=== PATIENT | male | born 1985 | race Caucasian/White ===

== ENCOUNTER 2016-10-08 15:26 | Inpatient (IN) ==
[2016-10-08] MEDS ORDERED: *HR* Belladonna Alkaloids/Opium 30 MG RECTAL SUPPOSITORY RC ONE (15:28)
--- NOTE | 2016-10-08 15:38 | Emergency Department Note ---
Disposition Clinical Impression: Bladder spasms UTI (urinary tract infection) Qualifiers: Urinary tract infection type: acute cystitis Hematuria presence: with hematuria Qualified Code(s): N30.01 - Acute cystitis with hematuria Disposition: Admitted As Inpatient Condition: Good Referrals: NO,PCP [Primary Care Provider] - Forms: ED Satisfaction Letter Time of Disposition: 18:06 Male Urogenital HPI - General Chief complaint: ED Urogenital-Male Stated complaint: bladder spasms Time Seen by Provider: 10/08/16 15:28 Source: patient, EMS Mode of arrival: EMS Limitations: no limitations Nursing Notes Reviewed: Yes Vital Signs Reviewed: Yes - History of Present Illness HPI Narrative: Patient presents to the emergency department from home via EMS. He complains of bladder spasms. 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 He states his bladder spasms causes left leg to shake and for him to have loose bowel movements. He denies fevers or systemic symptoms including nausea, vomiting, chills. Pt Subjective Complaint: other Onset (ago): day(s) Duration: intermittent Improves with: none Worsens with: none indwelling catheter Reports: other (Diarrhea, leg shaking) - Related Data Home Medications Medication Instructions Recorded Confirmed Baclofen [Lioresal] 10 mg PO TID 05/18/15 10/20/15 Gabapentin [Neurontin] 600 mg PO TID 05/18/15 10/20/15 Magnesium Oxide [Mag-Ox] 400 mg PO DAILY 05/18/15 10/20/15 OxyCODONE Immed Rel [Roxicodone 5 10 mg PO Q6HR PRN 05/18/15 10/20/15 MG] Sertraline [Zoloft] 100 mg PO DAILY 05/18/15 10/20/15 Warfarin [Coumadin] 5 mg PO QPM 05/18/15 10/20/15 Melatonin/Pyridoxine HCl (B6) 5 mg PO DAILY 10/20/15 10/20/15 [Melatonin 5 mg Tablet] Multivitamin [Multi-Day Vitamins] 1 tab PO DAILY 10/20/15 10/20/15 Previous Rx's Medication Instructions Recorded Cefdinir [Omnicef] 300 mg PO DAILY #10 capsule 10/23/15 OxyCODONE Immed Rel [Roxicodone 5 10 mg PO Q6HR PRN #30 tablet 10/23/15 MG] Allergies Allergy/AdvReac Type Severity Reaction Status Date / Time tramadol Allergy See Verified 10/08/16 15:34 Comments acetaminophen [From Vicodin] AdvReac Nausea Verified 10/08/16 15:34 ceftriaxone [From Rocephin] AdvReac See Verified 10/08/16 15:34 Comments hydrocodone [From Vicodin] AdvReac Nausea Verified 10/08/16 15:34 All systems ED: reviewed and negative except as stated. Constitutional: Reports: as per HPI Eyes: Reports: as per HPI ENT ED: Reports: as per HPI Cardiovascular: Reports: as per HPI Respiratory: Reports: as per HPI Gastrointestinal: Reports: diarrhea Genitourinary: Reports: other (Bladder spasms) Musculoskeletal: Reports: other (Left leg shaking) Integumentary: Reports: as per HPI Neurological: Reports: as per HPI Psychiatric: Reports: as per HPI Endocrine: Reports: as per HPI Hematological/Lymphatic: Reports: as per HPI Allergic/Immunologic: Reports: as per HPI Past Medical History - Past Medical History Source: patient Medical history: Reports: seizures, other Surgical history: Reports: hip replacement, tracheostomy Psychiatric history: Reports: anxiety - Social History Smoking Status: Current every day smoker Smokeless Tobacco Status: No Alcohol use: Reports: occasionally Drug use: Reports: marijuana Physical Exam Appears older than stated age on exam - General Limitations: no limitations General appearance: alert, in no apparent distress - Head Head exam: atraumatic - Eye Eye exam: Present: normal appearance - Neck Neck exam: Present: other (Remote tracheostomy scar) - Chest Chest inspection: Present: normal inspection, symmetric chest wall rise - Respiratory Respiratory exam: Present: normal lung sounds bilaterally. Absent: respiratory distress - Cardiovascular Cardiovascular exam: Present: regular rate, normal rhythm, normal heart sounds - Abdominal Exam Abdominal Exam: Present: soft, Non-Tender, normal bowel sounds - Male exam: Present: other (Suprapubic catheter) - Expanded Lower Extremity Exam Lower leg exam: Present: other (Left foot and heel with circumferential bandage in place) - Neurological Exam Neurological exam: Present: alert, oriented X3, CN II-XII intact - Psychiatric Psychiatric exam: Present: normal affect, normal mood - Skin Skin exam: Present: warm, dry, intact Course Course Narrative: Patient presents to the emergency department complaining of bladder spasms due to an indwelling suprapubic catheter. He denies systemic symptoms. No Sirs criteria. B and O suppository offered. I will replace the suprapubic catheter and send a urinalysis off urine obtained from the new catheter. I will check basic labs. He will be observed - Reevaluation(s) Reevaluation #1: 20-[place] suprapubic catheter removed and replaced by me. Reevaluation #2: Bladder spasms persist. Additional analgesics were ordered Reevaluation #3: Patient's pain is improved. I am concerned about his home situation and that he takes care of himself and he is nonambulatory and debilitated. He uses a wheelchair. His bladder spasms have caused diarrhea. Empiric antibiotics to be initiated. I will request admission to the medicine service Additional Reevaluation(s): Patient question regarding his ceftriaxone allergy. He states he does not, to his knowledge, have such an allergy. I discussed treatment options with the in- house pharmacist Carlos. I have reviewed the patient's most recent positive urine cultures which include corynebacterium and pseudomonas. We have mutually agreed to try Zosyn and closely observe the patient Vital Signs Temperature 99.5 F 10/08/16 15:28 Pulse Rate 98 10/08/16 15:28 Respiratory Rate 14 10/08/16 15:28 Blood Pressure 119/79 10/08/16 15:28 O2 Sat by Pulse Oximetry 98 10/08/16 15:28 Temperature 99.5 F 10/08/16 15:28 Pulse Rate 98 10/08/16 15:28 Respiratory Rate 16 10/08/16 17:34 Blood Pressure 135/82 10/08/16 17:34 O2 Sat by Pulse Oximetry 98 10/08/16 17:34 Oxygen Delivery Oxygen Delivery Room Air Urogenital-Male - Medical Records Medical records reviewed: Yes I reviewed the patient's medical records. Previous urinalysis and sensitivities - Lab Data Lab results reviewed: Yes I reviewed the patient's lab results. Result diagrams: 10/08/16 16:05 10/08/16 16:05 Lab Results 10/08/16 10/08/16 10/08/16 Range/Units 16:05 16:05 16:05 WBC 12.5 H (4.3-11.1) K/mcL RBC 5.84 H (4.19-5.50) M/mcL Hgb 17.1 H (12.9-16.9) g/dL Hct 49.0 (37.5-50.1) % MCV 83.9 (83.0-100.0) fL MCH 29.3 (28.0-33.3) pg MCHC 34.9 (31.6-35.5) g/dL RDW 14.5 (11.5-14.5) % Plt Count 298 (140-400) K/mcL MPV 10.3 (9.4-12.4) fL Immature Gran % 1.1 (0-4) % Seg Neutrophils % 79.0 % Lymphocytes % 4.9 % Monocytes % 14.5 % Eosinophils % 0.2 % Basophils % 0.3 % Neutrophils # 9.9 H (1.6-8.9) K/mcL Lymphocytes # 0.6 (0.6-4.6) K/mcL Monocytes # 1.8 H (0.0-1.3) K/mcL Eosinophils # 0.0 (0.0-0.6) K/mcL Basophils # 0.0 (0.0-0.2) K/mcL PT 46.4 H* (9.4-12.1) Seconds INR 4.1 Sodium 132 L (136-145) mEq/L Potassium 3.9 (3.5-4.5) mEq/L Chloride 91 L (98-109) mEq/L Carbon Dioxide 26 (19-29) mEq/L BUN 9 (8-26) mg/dL Creatinine 0.71 L (0.72-1.25) mg/dL Est GFR ( Amer) > 60 (> 60) Est GFR (Non-Af Amer) > 60 (> 60) BUN/Creatinine Ratio 13 (6-26) Glucose 96 (70-99) mg/dL Calculated Osmolality 273 L (280-300) Calcium 8.7 (8.6-10.8) mg/dL Total Bilirubin 0.8 (0.2-1.2) mg/dL AST 18 (5-34) Units/L ALT 28 (0-55) Units/L Alkaline Phosphatase 72 (38-126) Units/L Serum Total Protein 7.1 (6.0-8.3) g/dL Albumin 2.9 L (3.5-5.0) g/dL Globulin 4.2 H (2.4-3.5) g/dL Albumin/Globulin Ratio 0.7 L (1.1-2.2) Urine Color (Yellow) Urine Clarity (Clear) Urine pH (5.0-8.0) pH Units Ur Specific [place] (1.010-1.025) Urine Protein (Neg-Trace) mg/dL Urine Glucose (UA) (Normal) mg/dL Urine Ketones (Negative) mg/dL Urine Blood (Negative) Urine Nitrite (Negative) Urine Bilirubin (Negative) Urine Urobilinogen (Normal) mg/dL Ur Leukocyte Esterase (Negative) 10/08/16 Range/Units 17:52 WBC (4.3-11.1) K/mcL RBC (4.19-5.50) M/mcL Hgb (12.9-16.9) g/dL Hct (37.5-50.1) % MCV (83.0-100.0) fL MCH (28.0-33.3) pg MCHC (31.6-35.5) g/dL RDW (11.5-14.5) % Plt Count (140-400) K/mcL MPV (9.4-12.4) fL Immature Gran % (0-4) % Seg Neutrophils % % Lymphocytes % % Monocytes % % Eosinophils % % Basophils % % Neutrophils # (1.6-8.9) K/mcL Lymphocytes # (0.6-4.6) K/mcL Monocytes # (0.0-1.3) K/mcL Eosinophils # (0.0-0.6) K/mcL Basophils # (0.0-0.2) K/mcL PT (9.4-12.1) Seconds INR Sodium (136-145) mEq/L Potassium (3.5-4.5) mEq/L Chloride (98-109) mEq/L Carbon Dioxide (19-29) mEq/L BUN (8-26) mg/dL Creatinine (0.72-1.25) mg/dL Est GFR ( Amer) (> 60) Est GFR (Non-Af Amer) (> 60) BUN/Creatinine Ratio (6-26) Glucose (70-99) mg/dL Calculated Osmolality (280-300) Calcium (8.6-10.8) mg/dL Total Bilirubin (0.2-1.2) mg/dL AST (5-34) Units/L ALT (0-55) Units/L Alkaline Phosphatase (38-126) Units/L Serum Total Protein (6.0-8.3) g/dL Albumin (3.5-5.0) g/dL Globulin (2.4-3.5) g/dL Albumin/Globulin Ratio (1.1-2.2) Urine Color Yellow (Yellow) Urine Clarity Cloudy A (Clear) Urine pH 7.0 (5.0-8.0) pH Units Ur Specific [place] 1.015 (1.010-1.025) Urine Protein 100 H (Neg-Trace) mg/dL Urine Glucose (UA) Normal (Normal) mg/dL Urine Ketones 40 H (Negative) mg/dL Urine Blood Large H (Negative) Urine Nitrite Positive A (Negative) Urine Bilirubin Negative (Negative) Urine Urobilinogen Normal (Normal) mg/dL Ur Leukocyte Esterase Large H (Negative)
[2016-10-08 16:18] LABS: Basophils % 0.3 %; Eosinophils % 0.2 %; Hemoglobin 17.1 g/dL (12.9-16.9); Immature Granulocytes % 1.1 % (0-4); Lymphocytes # 0.6 K/mcL (0.6-4.6); Lymphocytes % 4.9 %; Mean Corpuscular HGB Conc 34.9 g/dL (31.6-35.5); Mean Corpuscular Hemoglobin 29.3 pg (28.0-33.3); Mean Corpuscular Volume 83.9 fL (83.0-100.0); Mean Platelet Volume 10.3 fL (9.4-12.4); Monocytes # 1.8 K/mcL (0.0-1.3); Monocytes % 14.5 %; Neutrophils # 9.9 K/mcL (1.6-8.9); Platelet Count 298 K/mcL (140-400); Red Blood Count 5.84 M/mcL (4.19-5.50); Red Cell Distribution Width 14.5 % (11.5-14.5)
[2016-10-08 16:22] LABS: INR 4.1
[2016-10-08 16:28] LABS: Alanine Aminotransferase 28 Units/L (0-55); Albumin 2.9 g/dL (3.5-5.0); Albumin/Globulin Ratio 0.7 (1.1-2.2); Alkaline Phosphatase 72 Units/L (38-126); Aspartate Amino Transferase 18 Units/L (5-34); BUN/Creatinine Ratio 13 (6-26); Bilirubin,Total 0.8 mg/dL (0.2-1.2); Blood Urea Nitrogen 9 mg/dL (8-26); Calcium 8.7 mg/dL (8.6-10.8); Carbon Dioxide 26 mEq/L (19-29); Chloride 91 mEq/L (98-109); Globulin 4.2 g/dL (2.4-3.5); Glucose 96 mg/dL (70-99); Osmolality,Calculated 273 (280-300); Potassium 3.9 mEq/L (3.5-4.5); Prothrombin Time 46.4 Seconds (9.4-12.1); Sodium 132 mEq/L (136-145); Total Protein 7.1 g/dL (6.0-8.3); eGFR For African Americans > 60 (> 60); eGFR For Non-African Americans > 60 (> 60)
[2016-10-08] MEDS ORDERED: *HR* HYDROmorphone (PF) 1 MG/ML SYRINGE IVP ONE (17:32)
[2016-10-08 17:59] LABS: Bilirubin,Urine Negative (Negative); Blood,Urine Large (Negative); Clarity,Urine Cloudy (Clear); Color,Urine Yellow (Yellow); Glucose,Urine (UA) Normal (Normal); Ketones,Urine 40 mg/dL (Negative); Leukocyte Esterase,Urine Large (Negative); Nitrite,Urine Positive (Negative); Protein,Urine 100 mg/dL (Neg-Trace); Specific Gravity,Urine 1.015 (1.010-1.025); Urobilinogen,Urine Normal (Normal)
[2016-10-08 18:01] LABS: Bacteria,Urine Many per hpf (None-Few); RBC,Urine TNTC per hpf (0-3); Squamous Epithelial Cell,Urine Moderate per lpf (None-Few); WBC,Urine TNTC per hpf (0-3)
[2016-10-08] MEDS ORDERED: Piperacillin/Tazobactam 3.375 GM in D5% in Water (Mini-Bag+) 100 ML IVPB ONE (18:12)
[2016-10-09] MEDS ORDERED: *HR* Belladonna Alkaloids/Opium 30 MG RECTAL SUPPOSITORY RC PRN (00:29)
[2016-10-09] MEDS ORDERED: Naloxone 0.4 MG/ML INJ IVP PRN (00:40)
[2016-10-09 01:52] LABS: Basophils # 0.1 K/mcL (0.0-0.2); Basophils % 0.4 %; Eosinophils % 0.2 %; Hematocrit 47.4 % (37.5-50.1); Hemoglobin 16.6 g/dL (12.9-16.9); Immature Granulocytes % 1.3 % (0-4); Lymphocytes # 0.7 K/mcL (0.6-4.6); Lymphocytes % 5.9 %; Mean Corpuscular Hemoglobin 28.8 pg (28.0-33.3); Mean Corpuscular Volume 82.3 fL (83.0-100.0); Mean Platelet Volume 10.7 fL (9.4-12.4); Monocytes # 1.9 K/mcL (0.0-1.3); Monocytes % 15.5 %; Neutrophils # 9.6 K/mcL (1.6-8.9); Platelet Count 303 K/mcL (140-400); Red Blood Count 5.76 M/mcL (4.19-5.50); Red Cell Distribution Width 14.1 % (11.5-14.5); Segmented Neutrophils % 76.7 %
[2016-10-09 02:07] LABS: BUN/Creatinine Ratio 10 (6-26); Blood Urea Nitrogen 7 mg/dL (8-26); Calcium 8.7 mg/dL (8.6-10.8); Carbon Dioxide 28 mEq/L (19-29); Chloride 92 mEq/L (98-109); Glucose 117 mg/dL (70-99); Osmolality,Calculated 269 (280-300); Potassium 3.5 mEq/L (3.5-4.5); Sodium 130 mEq/L (136-145); eGFR For African Americans > 60 (> 60); eGFR For Non-African Americans > 60 (> 60)
[2016-10-09 02:10] LABS: INR 3.2; Prothrombin Time 36.1 Seconds (9.4-12.1)
[2016-10-09] MEDS ORDERED: Pantoprazole 40 MG VIAL IVP ONE (02:17)
[2016-10-09] MEDS ORDERED: Ibuprofen 400 MG TABLET PO ONE (02:18)
--- NOTE | 2016-10-09 02:59 | Internal Med History&Physical ---
Date of Encounter: 10/08/16 Time of Encounter: 22:15 Assessment and Plan (1) UTI (urinary tract infection) Current visit: Yes Status: Acute Pt has h/o suprapubic catheter and prior multidrug resistant UTIs. Continue with zosyn. Urine cultures pending at this time - titrate antibiotics, based on sensitivities. Qualifiers: Urinary tract infection type: catheter-associated UTI Indwelling urinary catheter type: indwelling urethral catheter Encounter type: initial encounter Qualified Code(s): T83.511A - Infection and inflammatory reaction due to indwelling urethral catheter, initial encounter; N39.0 - Urinary tract infection , site not specified (2) Bladder spasms Current visit: Yes Status: Acute Possibly worsened by the UTI / suprapubic catheter. Pt was not able to retain belladona enemas in the ER. Start pyridium. Continue treatment for UTI (3) DVT prophylaxis Current visit: No Status: Acute On warfarin and INR is supratherapeutic (4) Supratherapeutic INR Current visit: Yes Status: Acute INR is 4.1 at admission. Monitor INR - warfarin dosing per pharmacy. P tis on chronic anticoagulation for lupus (5) Nicotine dependence Current visit: Yes Status: Chronic Counseled for smoking cessation for less than 3 min. He does not want nicotine patch Qualifiers: Nicotine product type: cigarettes Substance use status: uncomplicated Qualified Code(s): F17.210 - Nicotine dependence, cigarettes, uncomplicated Internal Medicine - H&P: HPI Chief complaint: Bladder spasms Admitted From: Home Plans for Post Hospital Care: Home History of present illness: Mr. Urbano is a 31 year old male with past medical history significant for lupus (on chronic anticoagulation with warfarin), seizures and prior h/o trauma to the urethra following pt trying to remove garg with inflated bulb. He has been on suprapubic catheter for about 3 years and had h/o recurrent UTIs. His urine cultures from 05/16/15 showed multidrug resistant pseudomonas aeruginosa. He present s to the ER, with bladder spasms for about 2 weeks. He reports constant spasms, which cause left leg to shake and also have loose bowel movements. He had been on oxybutynin and feels that it is ineffective. He had been trying to move the catheter, without effect. He reports some bleeding, and foul smelling in the catheter. His suprapubic catheter was changed in the ER today. His urinalysis was suspicious for UTI he was given zosyn and admitted to the hospitalist service for further management. Pt denies subjective fever, nausea, vomiting, shortness of breath. Past Med Surg Social Fam HX - Past Medical History Medical history: seizures, other Psychiatric history: anxiety, depression - Past Surgical History Surgical History: hip replacement, tracheostomy - Social History Smoking Status: Current every day smoker Smokeless Tobacco Status: No Alcohol use: occasionally Drug use: marijuana - Family History Mother Living Status: Age at : 56 Cause of : Blood Clot Hx Family Cardiac Disorders: Yes (HTN) Hx Family Respiratory Disorders: Yes (clots) Hx Family Cancer: No Hx Family GI Disorders: No Hx Family Genitourinary Disorders: No Hx Family Endocrine Disorder: No Hx Family Musculoskeletal Disorders: No Hx Family Neuromuscular Disorders: No Hx Family Neurologic Disorders: No Hx Family HEENT Disorders: No Hx Family Autoimmune Disorders: No Hx Family Reproductive Disorders: No Hx Family Psychosocial Disorders: Yes (anxiety, depression,) Hx Family Medical Disorders: No Father Age: 55 Living Status: Still Living Hx Family Cardiac Disorders: No Hx Family Respiratory Disorders: No Hx Family Cancer: Yes (testicular and lung) Hx Family GI Disorders: No Hx Family Genitourinary Disorders: No Hx Family Endocrine Disorder: No Hx Family Musculoskeletal Disorders: No Hx Family Neuromuscular Disorders: No Hx Family Neurologic Disorders: No Hx Family HEENT Disorders: No Hx Family Autoimmune Disorders: No Hx Family Reproductive Disorders: No Hx Family Psychosocial Disorders: No Hx Family Medical Disorders: No Internal Medicine - H&P: Meds Sertraline [Zoloft] 100 mg PO DAILY 05/18/15 [History] Warfarin [Coumadin] 5 mg PO Q48H 05/18/15 [History] Oxybutynin Chloride [Ditropan Xl] 15 mg PO DAILY 10/08/16 [History] Warfarin [Coumadin] 4 mg PO Q48H 10/08/16 [History] Allergies tramadol Allergy (Verified 10/08/16 15:34) See Comments seizures acetaminophen [From Vicodin] Adverse Reaction (Verified 10/08/16 15:34) Nausea ceftriaxone [From Rocephin] Adverse Reaction (Verified 10/08/16 15:34) See Comments "feels like battery acid all over my skin" hydrocodone [From Vicodin] Adverse Reaction (Verified 10/08/16 15:34) Nausea All Systems PM: A 10-system review of systems was performed and is negative for pertinent findings except as documented above in the HPI. Review of systems: 10 point review of systems done and is negative, except for those mentioned in the HPI. - Constitutional Vitals: Temp Pulse Resp BP Pulse Ox 100.2 F H 120 20 107/64 95 10/09/16 00:37 10/09/16 00:37 10/09/16 00:37 10/09/16 00:37 10/09/16 00:37 Exam: General: In mild distress at the time of my evaluation HEENT: No conjunctival palor or scleral incterus Neck: No obvious swellings Lungs: Clear to auscultation Cardiac: Regular rate and rhythm. No significant murmurs Abdomen: Mild suprapubic tenderness present. Bowel sounds present Genito-urinary: Suprapubic catheter in place Neurological: Alert and oriented x 3. Psychiatric: Not aggressive or agitated. No delusions or hallucinations Muskuloskeletal: Flexion deformity at the hips and the knees bilaterally. No leg edema noted. Skin: No generalized rash. Internal Med - H&P Results - Labs CBC & Chem 7: 10/09/16 01:23 10/09/16 01:23 Labs: Short CBC 10/09/16 Range/Units 01:23 WBC 12.5 H (4.3-11.1) K/mcL Hgb 16.6 (12.9-16.9) g/dL Hct 47.4 (37.5-50.1) % Plt Count 303 (140-400) K/mcL Neutrophils # 9.6 H (1.6-8.9) K/mcL BMP 10/09/16 01:23 Sodium 130 L Potassium 3.5 Chloride 92 L Carbon Dioxide 28 BUN 7 L Creatinine 0.72 Glucose 117 H Calcium 8.7
[2016-10-09] MEDS: *HR* OxyCODONE Immed Rel 5 MG TABLET PO PRN ×2 (04:58→11:28)
[2016-10-09] MEDS: Piperacillin/Tazobactam 3.375 GM in D5% in Water (Mini-Bag+) 100 ML IVPB SCH ×2 (08:50→17:08)
[2016-10-09] MEDS: *HR* Morphine 2 MG/ML SYRINGE IV PRN ×3 (13:22→22:31)
--- NOTE | 2016-10-09 14:55 | Event Note ---
Date of Encounter: 10/09/16 Time of Encounter: 14:44 31 y/o M with PMH of SLE, seizure disorder, ETOH abuse, neurogenic bladdder with suprapubic catheter, PMH of distal femur fracture.Patient is admitted for complicated UTI, status post change of suprapubic catheter yesterday at ED. Was seen at the bedside today, reports that the bladder spasms and burning sensation has improved after starting the antibiotics, remains afebrile, no nausea or vomiting or abdominal pain. Noted that the urine culture was not sent from the ED at the time of admission. He has received antibiotics since yesterday. stable leucocytosis with improvement of his symptoms. will send the urine cx today. Has had Corynebacterium and Pseudomonas in urine culture in the past. Has persistent left leg pain which is chronic. Patient reports he is a nonambulator and has not straighten his leg for some time now. On exam he is contracted.was seen by ortho last 10/31 and as per the note, there is no recommendation for surgical management. This would require an extensive procedure with a distal femoral replacement. This will not change his overall condition which he has lived with for sometime now. HE follows with ortho outpatient. will continue IV Zosyn for now. he recently was dc from [facility] and now is coming from home he prefers to go back home with and does not want VT or ECF.
[2016-10-09] MEDS ORDERED: *HR* Warfarin 4 MG TABLET PO SCH (18:00)
[2016-10-09] MEDS ORDERED: Warfarin perPT PO PRN (18:00)
[2016-10-10] MEDS: Piperacillin/Tazobactam 3.375 GM in D5% in Water (Mini-Bag+) 100 ML IVPB SCH ×3 (00:30→15:00)
[2016-10-10] MEDS: *HR* Morphine 2 MG/ML SYRINGE IV PRN (03:44)
[2016-10-10 06:09] LABS: INR 3.7; Prothrombin Time 41.6 Seconds (9.4-12.1)
[2016-10-10] MEDS ORDERED: Acetaminophen 325 MG TABLET PO PRN (09:02)
[2016-10-10] MEDS: *HR* OxyCODONE Immed Rel 5 MG TABLET PO PRN ×2 (09:59→18:45)
[2016-10-10 10:14] LABS: Basophils # 0.1 K/mcL (0.0-0.2); Basophils % 0.5 %; Eosinophils % 0.3 %; Hematocrit 43.6 % (37.5-50.1); Hemoglobin 15.4 g/dL (12.9-16.9); Immature Granulocytes % 1.1 % (0-4); Lymphocytes # 0.6 K/mcL (0.6-4.6); Lymphocytes % 5.2 %; Mean Corpuscular HGB Conc 35.3 g/dL (31.6-35.5); Mean Corpuscular Hemoglobin 29.1 pg (28.0-33.3); Mean Corpuscular Volume 82.4 fL (83.0-100.0); Mean Platelet Volume 10.3 fL (9.4-12.4); Monocytes # 1.4 K/mcL (0.0-1.3); Neutrophils # 8.8 K/mcL (1.6-8.9); Platelet Count 275 K/mcL (140-400); Red Blood Count 5.29 M/mcL (4.19-5.50); Red Cell Distribution Width 14.2 % (11.5-14.5); Segmented Neutrophils % 79.9 %
--- NOTE | 2016-10-10 16:11 | Internal Med Progress Note ---
Date of Encounter: 10/10/16 Time of Encounter: 12:45 - Assessment and plan (1) Bladder spasms Current Visit: Yes Status: Acute Assessment and plan: Improved clinically, continue same meds (2) Supratherapeutic INR Current Visit: Yes Status: Acute Assessment and plan: INR today 3.7 Continue to hold Coumadin (3) UTI (urinary tract infection) Current Visit: Yes Status: Acute Assessment and plan: Continue Zosyn, follow cultures Qualifiers: Urinary tract infection type: catheter-associated UTI Indwelling urinary catheter type: indwelling urethral catheter Encounter type: initial encounter Qualified Code(s): T83.511A - Infection and inflammatory reaction due to indwelling urethral catheter, initial encounter; N39.0 - Urinary tract infection , site not specified (4) Systemic lupus erythematosus Current Visit: Yes Status: Chronic Qualifiers: Systemic lupus erythematosus type: unspecified Systemic lupus erythematosus organ involvement: unspecified Qualified Code(s): M32.9 - Systemic lupus erythematosus, unspecified (5) Seizure disorder Current Visit: Yes Status: Chronic Assessment and plan: Seizure precautions - Subjective Interval history: 31 y/o M with PMH of SLE, seizure disorder, ETOH abuse, neurogenic bladdder with suprapubic catheter, PMH of distal femur fracture. Patient is admitted for complicated UTI, status post change of suprapubic catheter at ED on presentation He is seen toay at bedside, reports that the bladder spasms and burning sensation has improved after starting the antibiotics, remains afebrile, no nausea or vomiting or abdominal pain. He had been started on empiric Zosyn based on his previous microbiology of Corynebacterium and Pseudomonas in urine culture in the past. Has persistent left leg pain which is chronic. He is otherwise stable Urine culture was just sent yesterday, we will await prelim microbiology Leukocytosis has improved - Constitutional Vitals: Temp Pulse Resp BP Pulse Ox 97.6 F 72 16 96/60 96 10/10/16 11:49 10/10/16 11:49 10/10/16 11:49 10/10/16 11:49 10/10/16 11:49 General appearance: Present: A&O X 3, pleasant, no acute distress, underweight - Head Head exam: Present: atraumatic, normocephalic - Eye Eye exam: Present: PERRL, conjuntiva pink, sclera anicteric Pupils: Present: PERRL - Neck Neck exam general surgery: Present: supple, trachea midline. Absent: lymphadenopathy - Respiratory Respiratory exam: Present: CTAB. Absent: accessory muscle use, rales, rhonchi, wheezes - Cardiovascular Cardiovascular exam: Present: RRR, +S1, +S2. Absent: diastolic murmur, gallop, rubs, systolic murmur - GI/Abdominal Additional comments: Suprapubic garg, site clean, no dressing over it No CVA tenderness - Extremities Exam Extremities exam: Absent: pedal edema Additional comments: Contracture of lower extremity - Neurological Exam Neurological exam: Present: CN II-XII intact, oriented X3. Absent: pronater drift, facial droop, speech deficit - Skin Skin exam: Present: dry Internal Medicine: Result - Labs CBC & Chem 7: 10/10/16 09:37 10/09/16 01:23 Labs: Short CBC 10/10/16 Range/Units 09:37 WBC 11.1 (4.3-11.1) K/mcL Hgb 15.4 (12.9-16.9) g/dL Hct 43.6 (37.5-50.1) % Plt Count 275 (140-400) K/mcL Neutrophils # 8.8 (1.6-8.9) K/mcL - ABG Interpretation ABG results: PT/INR, D-dimer PT 41.6 Seconds (9.4-12.1) H 10/10/16 05:49 Consult Discharge Plan - Plan Referrals: NO,PCP [Primary Care Provider] -
[2016-10-10] MEDS ORDERED: *HR* Warfarin 5 MG TABLET PO SCH (18:00)
[2016-10-11] MEDS ORDERED: *HR* Morphine 2 MG/ML SYRINGE IVP PRN (00:45)
[2016-10-11] MEDS: Piperacillin/Tazobactam 3.375 GM in D5% in Water (Mini-Bag+) 100 ML IVPB SCH ×2 (01:00→08:45)
[2016-10-11 06:19] LABS: Basophils % 0.5 %; Eosinophils # 0.1 K/mcL (0.0-0.6); Eosinophils % 0.7 %; Hematocrit 45.5 % (37.5-50.1); Immature Granulocytes % 0.4 % (0-4); Lymphocytes % 13.8 %; Mean Corpuscular HGB Conc 35.2 g/dL (31.6-35.5); Mean Corpuscular Hemoglobin 29.5 pg (28.0-33.3); Mean Corpuscular Volume 83.9 fL (83.0-100.0); Mean Platelet Volume 9.7 fL (9.4-12.4); Monocytes % 13.5 %; Neutrophils # 5.3 K/mcL (1.6-8.9); Platelet Count 323 K/mcL (140-400); Red Blood Count 5.42 M/mcL (4.19-5.50); Red Cell Distribution Width 14.3 % (11.5-14.5); Segmented Neutrophils % 71.1 %
[2016-10-11 06:21] LABS: INR 2.2
[2016-10-11 06:24] LABS: Activated Partial Thrombo Time 38.2 Seconds (26.0-36.0)
[2016-10-11 06:30] LABS: BUN/Creatinine Ratio 6 (6-26); Calcium 8.7 mg/dL (8.6-10.8); Carbon Dioxide 32 mEq/L (19-29); Chloride 94 mEq/L (98-109); Glucose 119 mg/dL (70-99); Osmolality,Calculated 280 (280-300); Potassium 3.4 mEq/L (3.5-4.5); Sodium 136 mEq/L (136-145); eGFR For African Americans > 60 (> 60); eGFR For Non-African Americans > 60 (> 60)
[2016-10-11 06:33] LABS: Blood Urea Nitrogen 4 mg/dL (8-26)
[2016-10-11 11:46] VITALS: BP 92/53
--- NOTE | 2016-10-11 12:27 | Physician Discharge Referral ---
Home Health/Hosp Referral Info Transfer to: Home Health Attending Provider: Kimberlee Provider in Charge Post Discharge: PCP - Diagnosis (1) Bladder spasms Priority: Primary Status: Resolved (2) Supratherapeutic INR Priority: Primary Status: Resolved (3) UTI (urinary tract infection) Priority: Primary Status: Acute (4) Systemic lupus erythematosus Priority: Secondary Status: Chronic (5) Seizure disorder Priority: Secondary Status: Chronic - Respiratory Orders Smoking Cessation: Smoking cessation has been advised. For more information, call the [place] Tobacco Quit Line at 8-684-OEFG-NOW. - Diet/Nutrition Diet/Nutrition Orders: Regular - Activity Activity Orders: Up ad dahlia - Services Needed Following services are medically necessary services: Nursing, Occupational Therapy - Transfer Medications Prescriptions: Belladonna Alkaloids/Opium [B + O] 30 mg RC Q6HR PRN #6 supp.rect PRN Reason: Spasms Amoxicillin/Clavulanate [Augmentin] 875 mg PO BIDWM #10 tablet Phenazopyridine [Pyridium] 200 mg PO TID PRN #10 tablet PRN Reason: See Comments Home Medications: Sertraline [Zoloft] 100 mg PO DAILY 05/18/15 [History] Warfarin [Coumadin] 5 mg PO Q48H 05/18/15 [History] Oxybutynin Chloride [Ditropan Xl] 15 mg PO DAILY 10/08/16 [History] Warfarin [Coumadin] 4 mg PO Q48H 10/08/16 [History] Amoxicillin/Clavulanate [Augmentin] 875 mg PO BIDWM #10 tablet 10/11/16 [Rx] Belladonna Alkaloids/Opium [B + O] 30 mg RC Q6HR PRN #6 supp.rect 10/11/16 [Rx] Phenazopyridine [Pyridium] 200 mg PO TID PRN #10 tablet 10/11/16 [Rx] Allergies/Adverse Reactions: Allergies tramadol Allergy (Verified 10/08/16 15:34) See Comments seizures acetaminophen [From Vicodin] Adverse Reaction (Verified 10/08/16 15:34) Nausea ceftriaxone [From Rocephin] Adverse Reaction (Verified 10/08/16 15:34) See Comments "feels like battery acid all over my skin" hydrocodone [From Vicodin] Adverse Reaction (Verified 10/08/16 15:34) Nausea Certification: Further, I certify that my clinical findings support that this patient is homebound (i.e. absences from home require considerable and taxing effort and are for medical reasons or holiness services or infrequently or short duration when for other reasons) because: Homebound Reason: Patient requires assistance of a person or device to safely leave home, Leaving home requires considerable and taxing effort due to condition Attestation: My signature below is to certify that this patient is under my care and that I, or nurse practitioner, or a physician's dam tender assistant working with me, has a face-to -face encounter with this patient.
--- NOTE | 2016-10-11 12:29 | Discharge Summary ---
Date of Encounter: 10/11/16 Time of Encounter: 10:20 - Discharge Diagnosis (1) Bladder spasms Priority: Secondary Status: Resolved (2) Supratherapeutic INR Priority: Secondary Status: Resolved (3) UTI (urinary tract infection) Priority: Primary Status: Acute Qualifiers: Urinary tract infection type: catheter-associated UTI Indwelling urinary catheter type: indwelling urethral catheter Encounter type: initial encounter Qualified Code(s): T83.511A - Infection and inflammatory reaction due to indwelling urethral catheter, initial encounter; N39.0 - Urinary tract infection , site not specified (4) Systemic lupus erythematosus Priority: Secondary Status: Chronic Qualifiers: Systemic lupus erythematosus type: unspecified Systemic lupus erythematosus organ involvement: unspecified Qualified Code(s): M32.9 - Systemic lupus erythematosus, unspecified (5) Seizure disorder Priority: Secondary Status: Chronic - Discharge Medications Prescriptions: Belladonna Alkaloids/Opium [B + O] 30 mg RC Q6HR PRN #6 supp.rect PRN Reason: Spasms Amoxicillin/Clavulanate [Augmentin] 875 mg PO BIDWM #10 tablet Phenazopyridine [Pyridium] 200 mg PO TID PRN #10 tablet PRN Reason: See Comments Home Medications: Sertraline [Zoloft] 100 mg PO DAILY 05/18/15 [History] Warfarin [Coumadin] 5 mg PO Q48H 05/18/15 [History] Oxybutynin Chloride [Ditropan Xl] 15 mg PO DAILY 10/08/16 [History] Warfarin [Coumadin] 4 mg PO Q48H 10/08/16 [History] Amoxicillin/Clavulanate [Augmentin] 875 mg PO BIDWM #10 tablet 10/11/16 [Rx] Belladonna Alkaloids/Opium [B + O] 30 mg RC Q6HR PRN #6 supp.rect 10/11/16 [Rx] Phenazopyridine [Pyridium] 200 mg PO TID PRN #10 tablet 10/11/16 [Rx] Allergies/Adverse Reactions: Allergies tramadol Allergy (Verified 10/08/16 15:34) See Comments seizures acetaminophen [From Vicodin] Adverse Reaction (Verified 10/08/16 15:34) Nausea ceftriaxone [From Rocephin] Adverse Reaction (Verified 10/08/16 15:34) See Comments "feels like battery acid all over my skin" hydrocodone [From Vicodin] Adverse Reaction (Verified 10/08/16 15:34) Nausea Date of admission: 10/09/16 00:52 Primary care physician: PCP NO Consults: 10/09/16 07:07 Consult to Deployment Specialist [CONS] Routine Reason for SW Consult: Pt is from home alone, states he can't take care of himself 10/09/16 08:46 Consult to Occupational Therapy [CONS] Routine Comment: Evaluate, develop and implement POC Consult to Physical Therapy [CONS] Routine Comment: Evaluate, develop and implement POC Discharging clinician: Babatunde Mohan Anticipated date of discharge: 10/11/16 - Patient Status Disposition: Home Health Service Condition: Good Functional capacity at discharge: wheelchair bound Overall status at discharge: patient is back to baseline - Discharge Instructions Follow Up With: NO,PCP [Primary Care Provider] - - Diet and Activity Diet: advance to your usual diet Interval History: See below Hospital course: Mr. Urbano is a 31 year old male PMH of SLE, Seizure disorder, EtOH abuse, Neurogenic bladder with suprapubic catheter Was admitted for management of complicated UTI He was placed on Zosyn based on previous urine culture with pseudomonas Urine culture during this admission is negative We will discharge on Augmentin to complete 10 days of therapy Other chronic conditions remain stable Home services has been reactivated He received the flu shot - Time Spent with Patient Total time spent providing and/or coordinating discharge services: Less than 30 minutes - Constitutional Vitals: Temp Pulse Resp BP Pulse Ox 98.2 F 54 10 92/53 96 10/11/16 11:43 10/11/16 11:43 10/11/16 11:43 10/11/16 11:43 10/11/16 11:43 General appearance: Present: A&O X 3, pleasant, no acute distress, underweight - Head Head exam: Present: atraumatic, normocephalic - Eye Eye exam: Present: PERRL, conjuntiva pink, sclera anicteric Pupils: Present: PERRL - Neck Neck exam general surgery: Present: supple, trachea midline. Absent: lymphadenopathy - Respiratory Respiratory exam: Present: CTAB. Absent: accessory muscle use, rales, rhonchi, wheezes - GI/Abdominal Additional comments: Suprapubic catheter, draining clear urine - Extremities Exam Additional comments: Contractures - Neurological Exam Neurological exam: Present: CN II-XII intact, oriented X3, no focal deficits. Absent: pronater drift, facial droop, speech deficit - Skin Skin exam: Present: dry
[2016-10-11] MEDS ORDERED: *HR* Warfarin 4 MG TABLET PO ONE (18:00)
== END 2016-10-11 15:40 | disposition home health service (06) | DRG 466 ==
LOC: EMEROO 15:26 → 2ANU 15:26 → SUATTDRO 10-09 00:52
PROVIDERS: ADMIT Internal Medicine; ATTEND Internal Medicine

== ENCOUNTER 2016-11-07 06:30 | Observation (INO) ==
--- NOTE | 2016-11-07 07:22 | Emergency Department Note ---
Disposition Clinical Impression: UTI (urinary tract infection) Qualifiers: Urinary tract infection type: catheter-associated UTI Indwelling urinary catheter type: cystostomy catheter Encounter type: subsequent encounter Qualified Code(s): T83.510D - Infection and inflammatory reaction due to cystostomy catheter, subsequent encounter; N39.0 - Urinary tract infection, site not specified Disposition: Admitted As Inpatient Condition: Fair Referrals: NO,PCP [Primary Care Provider] - Forms: Work/School Release, ED Satisfaction Letter Time of Disposition: 09:40 Abdominal Pain HPI - General Chief Complaint: ED Abdominal Pain Stated Complaint: Abdominal Pain Time Seen by Provider: 11/07/16 06:46 Source: patient Nursing Notes Reviewed: Yes Vital Signs Reviewed: Yes - History of Present Illness HPI Narrative: Patient is a 31-year-old male who presents to [facility] ED with a chief complaint of suprapubic pain. States his pain has been gradually worsening over the last week and a half. He has a suprapubic catheter in place and states he gets frequent urinary tract infections. She believes this is what it is this time. He has had some discharge from his penis. Denies any nausea, vomiting, fever or chills. Patient was most recently admitted back in September and had been on Zosyn and then sent home with Augmentin. His culture at that time was negative. However he has grown out pseudomonas in his most recent urinary culture 10/29/15. Pt Subjective Complaint: abdominal pain Onset (ago): week(s) Consistency: Worsening Location: suprapubic Pain Severity: severe Pain Scale: 8 Quality: cramping, sharp Radiation: suprapubic Migration to: no migration Improves with: nothing Worsens with: nothing Associated symptoms: Reports: chills. Denies: nausea, vomiting, fever Treatments prior to arrival: none - Related Data Home Medications Medication Instructions Recorded Confirmed Sertraline [Zoloft] 100 mg PO DAILY 05/18/15 10/08/16 Warfarin [Coumadin] 5 mg PO Q48H 05/18/15 10/08/16 Oxybutynin Chloride [Ditropan Xl] 15 mg PO DAILY 10/08/16 10/08/16 Warfarin [Coumadin] 4 mg PO Q48H 10/08/16 10/08/16 Allergies Allergy/AdvReac Type Severity Reaction Status Date / Time tramadol Allergy See Verified 11/07/16 09:22 Comments acetaminophen [From Vicodin] AdvReac Nausea Verified 11/07/16 09:22 ceftriaxone [From Rocephin] AdvReac See Verified 11/07/16 09:22 Comments hydrocodone [From Vicodin] AdvReac Nausea Verified 11/07/16 09:22 All systems ED: reviewed and negative except as stated. Abdominal Pain PMH - Past Medical History Medical history: Reports: seizures, other Male Surgical History: Reports: tracheostomy, other Psychiatric history: Reports: anxiety, depression - Social History Smoking status: Current every day smoker Alcohol use: Reports: heavy, recent Drug use: Reports: marijuana Physical Exam - General Limitations: no limitations General appearance: alert, in no apparent distress, cachectic - Head Head exam: atraumatic, normocephalic, normal inspection - Eye Eye exam: Present: normal appearance, PERRL, EOMI - ENT ENT exam: normal exam, normal oropharynx, mucous membranes moist - Neck Neck exam: Present: normal inspection, full ROM, trachea midline - Chest Chest inspection: Present: normal inspection, symmetric chest wall rise - Respiratory Respiratory exam: Present: normal lung sounds bilaterally - Cardiovascular Cardiovascular exam: Present: regular rate, normal rhythm, normal heart sounds - Abdominal Exam Abdominal exam: Present: soft, tenderness, normal bowel sounds. Absent: distention, guarding, rebound, rigidity Abdominal tenderness: Present: suprapubic, moderate - Extremities Exam Extremities exam: Present: normal inspection, full ROM. Absent: tenderness, pedal edema - Back Exam Back exam: Present: normal inspection, full ROM. Absent: tenderness - Neurological Exam Neurological exam: Present: alert, oriented X3 - Psychiatric Psychiatric exam: Present: normal affect, normal mood - Skin Skin exam: Present: warm, dry, intact, normal color Course Course Narrative: Patient seen and examined. Suprapubic abdominal pain patient feels is another recurrent urinary tract infection. Most recent urine culture showed pseudomonas. Patient states he has not been treated for this anytime recently. With the worsening pain and the patient being tachycardic and borderline hypotensive here, we will go ahead and start a line, draw septic workup labs with blood cultures and start him on a dose of IV Zosyn. 1 L fluids ordered at this time. - Reevaluation(s) Reevaluation #1: Since the patient's previous urinary tract infection was untreated and he is not sensitive to any oral antibiotics, we will admit him to hospital list for further management and treatment. I spoke with hospitalist Dr. Davis who has accepted patient for admission. Time: 09:39 Vital Signs Temperature 98.2 F 11/07/16 06:32 Pulse Rate 124 11/07/16 06:32 Respiratory Rate 18 11/07/16 06:32 Blood Pressure 122/87 11/07/16 06:32 O2 Sat by Pulse Oximetry 98 11/07/16 06:32 Temperature 98.2 F 11/07/16 06:32 Pulse Rate 91 11/07/16 08:12 Respiratory Rate 17 11/07/16 08:12 Blood Pressure 114/83 11/07/16 08:12 O2 Sat by Pulse Oximetry 98 11/07/16 08:12 Oxygen Delivery Oxygen Delivery Room Air Abdominal Pain - Medical Records Medical records reviewed: Yes I reviewed the patient's medical records. - Lab Data Lab results reviewed: Yes I reviewed the patient's lab results. Result diagrams: 11/07/16 06:44 11/07/16 06:44 Lab Results 11/07/16 11/07/16 11/07/16 Range/Units 06:42 06:44 06:44 WBC 6.4 (4.3-11.1) K/mcL RBC 5.80 H (4.19-5.50) M/mcL Hgb 17.2 H (12.9-16.9) g/dL Hct 49.4 (37.5-50.1) % MCV 85.2 (83.0-100.0) fL MCH 29.7 (28.0-33.3) pg MCHC 34.8 (31.6-35.5) g/dL RDW 19.0 H (11.5-14.5) % Plt Count 226 (140-400) K/mcL MPV 10.3 (9.4-12.4) fL Immature Gran % 0.9 (0-4) % Seg Neutrophils % 48.9 % Lymphocytes % 36.5 % Monocytes % 8.2 % Eosinophils % 3.8 % Basophils % 1.7 % Neutrophils # 3.1 (1.6-8.9) K/mcL Lymphocytes # 2.3 (0.6-4.6) K/mcL Monocytes # 0.5 (0.0-1.3) K/mcL Eosinophils # 0.2 (0.0-0.6) K/mcL Basophils # 0.1 (0.0-0.2) K/mcL Sodium 140 (136-145) mEq/L Potassium 3.1 L (3.5-4.5) mEq/L Chloride 103 (98-109) mEq/L Carbon Dioxide 25 (19-29) mEq/L BUN 5 L (8-26) mg/dL Creatinine 0.64 L (0.72-1.25) mg/dL Est GFR ( Amer) > 60 (> 60) Est GFR (Non-Af Amer) > 60 (> 60) BUN/Creatinine Ratio 8 (6-26) Glucose 107 H (70-99) mg/dL Calculated Osmolality 288 (280-300) Lactic Acid (0.5-2.2) mmol/L Calcium 8.8 (8.6-10.8) mg/dL Phosphorus 3.4 (2.3-4.7) mg/dL Magnesium 1.6 (1.6-2.6) mg/dL Total Bilirubin 0.8 (0.2-1.2) mg/dL Direct Bilirubin 0.4 (0.0-0.5) mg/dL Indirect Bilirubin 0.4 (0.0-1.2) mg/dL AST 37 H (5-34) Units/L ALT 17 (0-55) Units/L Alkaline Phosphatase 124 (38-126) Units/L Troponin I (0-0.03) ng/mL Serum Total Protein 7.1 (6.0-8.3) g/dL Albumin 3.3 L (3.5-5.0) g/dL Globulin 3.8 H (2.4-3.5) g/dL Albumin/Globulin Ratio 0.9 L (1.1-2.2) Urine Color Yellow (Yellow) Urine Clarity Cloudy A (Clear) Urine pH 7.5 (5.0-8.0) pH Units Ur Specific [place] 1.012 (1.010-1.025) Urine Protein 100 H (Neg-Trace) mg/dL Urine Glucose (UA) Normal (Normal) mg/dL Urine Ketones Negative (Negative) mg/dL Urine Blood Large H (Negative) Urine Nitrite Positive A (Negative) Urine Bilirubin Negative (Negative) Urine Urobilinogen Normal (Normal) mg/dL Ur Leukocyte Esterase Large H (Negative) Urine Microscopic RBC 50-100 H (0-3) per hpf Urine Microscopic WBC TNTC H (0-3) per hpf Ur Squamous Epith Cells Moderate H (None-Few) per lpf Urine Bacteria Many H (None-Few) per hpf Hyaline Casts None Seen (None-Few) per lpf Ur Culture Indicated? YES A (NO) 11/07/16 11/07/16 Range/Units 06:44 07:49 WBC (4.3-11.1) K/mcL RBC (4.19-5.50) M/mcL Hgb (12.9-16.9) g/dL Hct (37.5-50.1) % MCV (83.0-100.0) fL MCH (28.0-33.3) pg MCHC (31.6-35.5) g/dL RDW (11.5-14.5) % Plt Count (140-400) K/mcL MPV (9.4-12.4) fL Immature Gran % (0-4) % Seg Neutrophils % % Lymphocytes % % Monocytes % % Eosinophils % % Basophils % % Neutrophils # (1.6-8.9) K/mcL Lymphocytes # (0.6-4.6) K/mcL Monocytes # (0.0-1.3) K/mcL Eosinophils # (0.0-0.6) K/mcL Basophils # (0.0-0.2) K/mcL Sodium (136-145) mEq/L Potassium (3.5-4.5) mEq/L Chloride (98-109) mEq/L Carbon Dioxide (19-29) mEq/L BUN (8-26) mg/dL Creatinine (0.72-1.25) mg/dL Est GFR ( Amer) (> 60) Est GFR (Non-Af Amer) (> 60) BUN/Creatinine Ratio (6-26) Glucose (70-99) mg/dL Calculated Osmolality (280-300) Lactic Acid 2.6 H (0.5-2.2) mmol/L Calcium (8.6-10.8) mg/dL Phosphorus (2.3-4.7) mg/dL Magnesium (1.6-2.6) mg/dL Total Bilirubin (0.2-1.2) mg/dL Direct Bilirubin (0.0-0.5) mg/dL Indirect Bilirubin (0.0-1.2) mg/dL AST (5-34) Units/L ALT (0-55) Units/L Alkaline Phosphatase (38-126) Units/L Troponin I 0.00 (0-0.03) ng/mL Serum Total Protein (6.0-8.3) g/dL Albumin (3.5-5.0) g/dL Globulin (2.4-3.5) g/dL Albumin/Globulin Ratio (1.1-2.2) Urine Color (Yellow) Urine Clarity (Clear) Urine pH (5.0-8.0) pH Units Ur Specific [place] (1.010-1.025) Urine Protein (Neg-Trace) mg/dL Urine Glucose (UA) (Normal) mg/dL Urine Ketones (Negative) mg/dL Urine Blood (Negative) Urine Nitrite (Negative) Urine Bilirubin (Negative) Urine Urobilinogen (Normal) mg/dL Ur Leukocyte Esterase (Negative) Urine Microscopic RBC (0-3) per hpf Urine Microscopic WBC (0-3) per hpf Ur Squamous Epith Cells (None-Few) per lpf Urine Bacteria (None-Few) per hpf Hyaline Casts (None-Few) per lpf Ur Culture Indicated? (NO) Attestation Statement - Attestation Attestation: I examined this patient and my medical decision-making was reviewed with the CONVENTION SERVICES MANAGER/PA/Advanced Practice Nurse/Resident Physician. I agree with the documented findings, disposition and treatment plan as described except to the extent set forth below. Patient emergency department complaining of feeling like he has a UTI. He states that he has pain going down through his penis. He has foam in his catheter. Patient has a suprapubic catheter. No fever no vomiting. On exam is awake and alert in no distress. Blood pressure stable over 100 systolic. He is mildly tachycardic in the low 100s. Plan. Patient's basic labs show a low potassium which is replaced. White count is normal. Lactate normal. Plan. Last culture reviewed. Patient grew Pseudomonas. We will treat.
[2016-11-07] MEDS ORDERED: Hyoscyamine SL 0.125 MG TAB.SUBL SL ONE (07:26)
[2016-11-07] MEDS ORDERED: 0.9 % Sodium Chloride 1,000 ML IVC ONE (07:28)
[2016-11-07] MEDS ORDERED: Piperacillin/Tazobactam 3.375 GM in D5% in Water (Mini-Bag+) 100 ML IVPB ONE (07:33)
[2016-11-07 07:36] LABS: Bilirubin,Urine Negative (Negative); Blood,Urine Large (Negative); Clarity,Urine Cloudy (Clear); Color,Urine Yellow (Yellow); Glucose,Urine (UA) Normal (Normal); Ketones,Urine Negative (Negative); Leukocyte Esterase,Urine Large (Negative); Nitrite,Urine Positive (Negative); PH,Urine 7.5 pH Units (5.0-8.0); Protein,Urine 100 mg/dL (Neg-Trace); Specific Gravity,Urine 1.012 (1.010-1.025); Urobilinogen,Urine Normal (Normal)
[2016-11-07 07:38] LABS: Bacteria,Urine Many per hpf (None-Few); Hyaline Casts,Urine None Seen per lpf (None-Few); RBC,Urine 50-100 per hpf (0-3); Squamous Epithelial Cell,Urine Moderate per lpf (None-Few); WBC,Urine TNTC per hpf (0-3)
[2016-11-07 07:39] LABS: BUN/Creatinine Ratio 8 (6-26); Calcium 8.8 mg/dL (8.6-10.8); Carbon Dioxide 25 mEq/L (19-29); Chloride 103 mEq/L (98-109); Glucose 107 mg/dL (70-99); Osmolality,Calculated 288 (280-300); Potassium 3.1 mEq/L (3.5-4.5); Sodium 140 mEq/L (136-145); eGFR For African Americans > 60 (> 60); eGFR For Non-African Americans > 60 (> 60)
[2016-11-07 07:44] LABS: Blood Urea Nitrogen 5 mg/dL (8-26)
[2016-11-07 07:48] LABS: Basophils # 0.1 K/mcL (0.0-0.2); Basophils % 1.7 %; Eosinophils # 0.2 K/mcL (0.0-0.6); Eosinophils % 3.8 %; Hematocrit 49.4 % (37.5-50.1); Hemoglobin 17.2 g/dL (12.9-16.9); Immature Granulocytes % 0.9 % (0-4); Lymphocytes # 2.3 K/mcL (0.6-4.6); Lymphocytes % 36.5 %; Mean Corpuscular HGB Conc 34.8 g/dL (31.6-35.5); Mean Corpuscular Hemoglobin 29.7 pg (28.0-33.3); Mean Corpuscular Volume 85.2 fL (83.0-100.0); Mean Platelet Volume 10.3 fL (9.4-12.4); Monocytes # 0.5 K/mcL (0.0-1.3); Monocytes % 8.2 %; Neutrophils # 3.1 K/mcL (1.6-8.9); Platelet Count 226 K/mcL (140-400); Segmented Neutrophils % 48.9 %
[2016-11-07 08:15] LABS: Alanine Aminotransferase 17 Units/L (0-55); Albumin 3.3 g/dL (3.5-5.0); Albumin/Globulin Ratio 0.9 (1.1-2.2); Alkaline Phosphatase 124 Units/L (38-126); Aspartate Amino Transferase 37 Units/L (5-34); Bilirubin,Direct 0.4 mg/dL (0.0-0.5); Bilirubin,Indirect 0.4 mg/dL (0.0-1.2); Bilirubin,Total 0.8 mg/dL (0.2-1.2); Globulin 3.8 g/dL (2.4-3.5); Magnesium 1.6 mg/dL (1.6-2.6); Phosphorous 3.4 mg/dL (2.3-4.7); Total Protein 7.1 g/dL (6.0-8.3)
[2016-11-07] MEDS ORDERED: Cefepime HCl 2,000 MG in D5% in Water (Mini-Bag+) 100 ML IVPB ONE (09:37)
[2016-11-07] MEDS ORDERED: Naloxone 0.4 MG/ML INJ IVP PRN (11:23)
[2016-11-07] MEDS ORDERED: Ondansetron 4 MG/2 ML VIAL IVP PRN (11:23)
[2016-11-07] MEDS ORDERED: *HR* Warfarin 5 MG TABLET PO SCH (11:30)
--- NOTE | 2016-11-07 11:46 | Internal Med History&Physical ---
Date of Encounter: 11/07/16 Time of Encounter: 09:30 Internal Medicine - H&P: HPI Chief complaint: Suprapubic pain, dysuria x 2 weeks Admitted From: Emergency Dept Plans for Post Hospital Care: Home History of present illness: Mr. Urbano is a 31 year old male with neurogenic bladder s/p suprapubic catheter , recurrent UTI, presents with 2-3 weeks of suprapubic pain. He reports progressive pain in the suprapubis and dysuria. No fever, chills or rigors, nausea or vomiting. He reports weakness. He reports urethral discharge. His Vences catheter was last changed 1 month ago. He was recently admitted in September , he was treated with Zosyn while hospitalized and discharged home to complete a course of Augmentin. Urine culture at that time was " no bacterial growth". EMR reports recent urine culture of Pseudomonas, sensitive to Cefepime and Zosyn. He appears to have allergies to Cefriaxone. I am uncertain if he received treatment for this. He is FULL CODE as per discussion. He nominates his step-brother, Tommy Garrison ([phone]). ROS: A 10-point ROS was performed, positives and relevant negatives are detailed , system-symptoms not mentioned is assumed negative unless otherwise stated. Family History: Father: lung and testicular cancer, mother: DVT, depression and anxiety. Vital Signs Temperature 98.2 F 11/07/16 06:32 Pulse Rate 124 11/07/16 06:32 Respiratory Rate 18 11/07/16 06:32 Blood Pressure 122/87 11/07/16 06:32 O2 Sat by Pulse Oximetry 98 11/07/16 06:32 Temperature 98.2 F 11/07/16 06:32 Pulse Rate 91 11/07/16 08:12 Respiratory Rate 17 11/07/16 08:12 Blood Pressure 114/83 11/07/16 08:12 O2 Sat by Pulse Oximetry 98 11/07/16 08:12 O/E: Not in distress, not ill or toxic looking. HEENT: Not pale, anicteric, afebrile, acyanotic. Trachea is central. Chest: Clinically clear Heart: RRR, HS1.2 no murmur Abdomen: suprapubic catheter (with minimal peristomal drainage, not unusual), soft, suprapubic tenderness erich masses. BS+ : no flank tenderness, no CVA tenderness, no suprapubic tenderness. CASING BUILDER: aao x 3, Maintains left knee flexed, weakness in left lower extremity ( chronic, related to sciatica) Psychiatry: mood is good, affect is congruent, speech is normal, thought process is logical and goal-directed. Extremities: Maintains left knee flexed, weakness in left lower extremity ( chronic, related to sciatica), bilateral pedal edema, scaly stasis dermatitis bilaterally, onychogryphosis/onychomycosis, normal pedal pulse, no calf tenderness. Lab Results 11/07/16 11/07/16 11/07/16 Range/Units 06:42 06:44 06:44 WBC 6.4 (4.3-11.1) K/mcL RBC 5.80 H (4.19-5.50) M/mcL Hgb 17.2 H (12.9-16.9) g/dL Hct 49.4 (37.5-50.1) % MCV 85.2 (83.0-100.0) fL MCH 29.7 (28.0-33.3) pg MCHC 34.8 (31.6-35.5) g/dL RDW 19.0 H (11.5-14.5) % Plt Count 226 (140-400) K/mcL MPV 10.3 (9.4-12.4) fL Immature Gran % 0.9 (0-4) % Seg Neutrophils % 48.9 % Lymphocytes % 36.5 % Monocytes % 8.2 % Eosinophils % 3.8 % Basophils % 1.7 % Neutrophils # 3.1 (1.6-8.9) K/mcL Lymphocytes # 2.3 (0.6-4.6) K/mcL Monocytes # 0.5 (0.0-1.3) K/mcL Eosinophils # 0.2 (0.0-0.6) K/mcL Basophils # 0.1 (0.0-0.2) K/mcL Sodium 140 (136-145) mEq/L Potassium 3.1 L (3.5-4.5) mEq/L Chloride 103 (98-109) mEq/L Carbon Dioxide 25 (19-29) mEq/L BUN 5 L (8-26) mg/dL Creatinine 0.64 L (0.72-1.25) mg/dL Est GFR ( Amer) > 60 (> 60) Est GFR (Non-Af Amer) > 60 (> 60) BUN/Creatinine Ratio 8 (6-26) Glucose 107 H (70-99) mg/dL Calculated Osmolality 288 (280-300) Lactic Acid (0.5-2.2) mmol/L Calcium 8.8 (8.6-10.8) mg/dL Phosphorus 3.4 (2.3-4.7) mg/dL Magnesium 1.6 (1.6-2.6) mg/dL Total Bilirubin 0.8 (0.2-1.2) mg/dL Direct Bilirubin 0.4 (0.0-0.5) mg/dL Indirect Bilirubin 0.4 (0.0-1.2) mg/dL AST 37 H (5-34) Units/L ALT 17 (0-55) Units/L Alkaline Phosphatase 124 (38-126) Units/L Troponin I (0-0.03) ng/mL Serum Total Protein 7.1 (6.0-8.3) g/dL Albumin 3.3 L (3.5-5.0) g/dL Globulin 3.8 H (2.4-3.5) g/dL Albumin/Globulin Ratio 0.9 L (1.1-2.2) Urine Color Yellow (Yellow) Urine Clarity Cloudy A (Clear) Urine pH 7.5 (5.0-8.0) pH Units Ur Specific [place] 1.012 (1.010-1.025) Urine Protein 100 H (Neg-Trace) mg/dL Urine Glucose (UA) Normal (Normal) mg/dL Urine Ketones Negative (Negative) mg/dL Urine Blood Large H (Negative) Urine Nitrite Positive A (Negative) Urine Bilirubin Negative (Negative) Urine Urobilinogen Normal (Normal) mg/dL Ur Leukocyte Esterase Large H (Negative) Urine Microscopic RBC 50-100 H (0-3) per hpf Urine Microscopic WBC TNTC H (0-3) per hpf Ur Squamous Epith Cells Moderate H (None-Few) per lpf Urine Bacteria Many H (None-Few) per hpf Hyaline Casts None Seen (None-Few) per lpf Ur Culture Indicated? YES A (NO) 02/23/17 02/23/17 Range/Units 06:44 07:49 WBC (4.3-11.1) K/mcL RBC (4.19-5.50) M/mcL Hgb (12.9-16.9) g/dL Hct (37.5-50.1) % MCV (83.0-100.0) fL MCH (28.0-33.3) pg MCHC (31.6-35.5) g/dL RDW (11.5-14.5) % Plt Count (140-400) K/mcL MPV (9.4-12.4) fL Immature Gran % (0-4) % Seg Neutrophils % % Lymphocytes % % Monocytes % % Eosinophils % % Basophils % % Neutrophils # (1.6-8.9) K/mcL Lymphocytes # (0.6-4.6) K/mcL Monocytes # (0.0-1.3) K/mcL Eosinophils # (0.0-0.6) K/mcL Basophils # (0.0-0.2) K/mcL Sodium (136-145) mEq/L Potassium (3.5-4.5) mEq/L Chloride (98-109) mEq/L Carbon Dioxide (19-29) mEq/L BUN (8-26) mg/dL Creatinine (0.72-1.25) mg/dL Est GFR ( Amer) (> 60) Est GFR (Non-Af Amer) (> 60) BUN/Creatinine Ratio (6-26) Glucose (70-99) mg/dL Calculated Osmolality (280-300) Lactic Acid 2.6 H (0.5-2.2) mmol/L Calcium (8.6-10.8) mg/dL Phosphorus (2.3-4.7) mg/dL Magnesium (1.6-2.6) mg/dL Total Bilirubin (0.2-1.2) mg/dL Direct Bilirubin (0.0-0.5) mg/dL Indirect Bilirubin (0.0-1.2) mg/dL AST (5-34) Units/L ALT (0-55) Units/L Alkaline Phosphatase (38-126) Units/L Troponin I 0.00 (0-0.03) ng/mL Serum Total Protein (6.0-8.3) g/dL Albumin (3.5-5.0) g/dL Globulin (2.4-3.5) g/dL Albumin/Globulin Ratio (1.1-2.2) Urine Color (Yellow) Urine Clarity (Clear) Urine pH (5.0-8.0) pH Units Ur Specific [place] (1.010-1.025) Urine Protein (Neg-Trace) mg/dL Urine Glucose (UA) (Normal) mg/dL Urine Ketones (Negative) mg/dL Urine Blood (Negative) Urine Nitrite (Negative) Urine Bilirubin (Negative) Urine Urobilinogen (Normal) mg/dL Ur Leukocyte Esterase (Negative) Urine Microscopic RBC (0-3) per hpf Urine Microscopic WBC (0-3) per hpf Ur Squamous Epith Cells (None-Few) per lpf Urine Bacteria (None-Few) per hpf Hyaline Casts (None-Few) per lpf Ur Culture Indicated? (NO) IMP Complicated UTI, likely Pseudomonal, Chronic morbidities Lupus Avascular necrosis of femoral head s/p left total hip arthroplasty Spinal stenosis Rheumatoid arthritis PLAN Admit urine and blood culture, IV Cefepime 2g Q12H IVF Consult urology to change suprapubic catheter. Continue Coumadin, PT/NR baseline and in the AM Continue other medications of chronic morbidities. I discussed my findings and assessment with the patient, he verbalized understanding and is agreeable to admission. He is at high risk for sepsis of urinary origin. Past Med Surg Social Fam HX - Past Medical History Medical history: seizures, other Psychiatric history: anxiety, depression - Past Surgical History Surgical History: hip replacement, tracheostomy - Social History Smoking Status: Current every day smoker Smokeless Tobacco Status: No Alcohol use: heavy, recent Drug use: marijuana - Family History Mother Living Status: Hx Family Cardiac Disorders: Yes (HTN) Hx Family Respiratory Disorders: Yes (clots) Hx Family Cancer: No Hx Family GI Disorders: No Hx Family Endocrine Disorder: No Hx Family Neuromuscular Disorders: No Hx Family Neurologic Disorders: No Hx Family HEENT Disorders: No Hx Family Autoimmune Disorders: No Father Living Status: Still Living Hx Family Cardiac Disorders: No Hx Family Respiratory Disorders: No Hx Family Cancer: Yes (testicular and lung) Hx Family GI Disorders: No Hx Family Endocrine Disorder: No Hx Family Neuromuscular Disorders: No Hx Family Neurologic Disorders: No Hx Family HEENT Disorders: No Hx Family Autoimmune Disorders: No Internal Medicine - H&P: Meds Sertraline [Zoloft] 100 mg PO DAILY 05/18/15 [History] Warfarin [Coumadin] 5 mg PO Q48H 05/18/15 [History] Oxybutynin Chloride [Ditropan Xl] 15 mg PO DAILY 10/08/16 [History] Warfarin [Coumadin] 4 mg PO Q48H 10/08/16 [History] Allergies tramadol Allergy (Verified 11/07/16 09:22) See Comments seizures acetaminophen [From Vicodin] Adverse Reaction (Verified 11/07/16 09:22) Nausea ceftriaxone [From Rocephin] Adverse Reaction (Verified 11/07/16 09:22) See Comments "feels like battery acid all over my skin" hydrocodone [From Vicodin] Adverse Reaction (Verified 11/07/16 09:22) Nausea All Systems PM: A 10-system review of systems was performed and is negative for pertinent findings except as documented above in the HPI. - Constitutional Vitals: Temp Pulse Resp BP Pulse Ox 98.2 F 91 17 105/70 98 11/07/16 06:32 11/07/16 08:12 11/07/16 10:04 11/07/16 10:04 11/07/16 08:12 Internal Med - H&P Results - Labs CBC & Chem 7: 11/07/16 06:44 11/07/16 06:44 - VTE Reasons for not Prescribing Prophylaxis: Not indicated-Anticoagulated or INR therapeutic
[2016-11-07 13:24] LABS: INR 1.1; Prothrombin Time 12.1 Seconds (9.4-12.1)
[2016-11-07] MEDS: *HR* Morphine 2 MG/ML SYRINGE IVP PRN ×3 (14:34→23:04)
[2016-11-07] MEDS: 0.9 % Sodium Chloride w KCl 20 MEQ/1,000 ML MLS IVC SCH (14:34)
[2016-11-07] MEDS: Cefepime HCl 2,000 MG in D5% in Water (Mini-Bag+) 100 ML IVPB SCH (18:07)
[2016-11-07] MEDS: Ibuprofen 600 MG TABLET PO PRN (20:51)
[2016-11-08] MEDS: 0.9 % Sodium Chloride w KCl 20 MEQ/1,000 ML MLS IVC SCH (01:40)
[2016-11-08] MEDS: *HR* Morphine 2 MG/ML SYRINGE IVP PRN ×5 (04:08→20:54)
[2016-11-08 04:53] LABS: INR 1.2; Prothrombin Time 13.3 Seconds (9.4-12.1)
[2016-11-08 05:11] LABS: BUN/Creatinine Ratio 13 (6-26); Blood Urea Nitrogen 7 mg/dL (8-26); Calcium 8.4 mg/dL (8.6-10.8); Carbon Dioxide 23 mEq/L (19-29); Chloride 108 mEq/L (98-109); Glucose 102 mg/dL (70-99); Osmolality,Calculated 284 (280-300); Sodium 138 mEq/L (136-145); eGFR For African Americans > 60 (> 60); eGFR For Non-African Americans > 60 (> 60)
[2016-11-08 05:14] LABS: Potassium 4.3 mEq/L (3.5-4.5)
[2016-11-08] MEDS: Cefepime HCl 2,000 MG in D5% in Water (Mini-Bag+) 100 ML IVPB SCH ×2 (06:00→17:41)
--- NOTE | 2016-11-08 08:55 | Internal Med Progress Note ---
Date of Encounter: 11/08/16 Time of Encounter: 08:40 - Assessment and plan (1) Pseudomonas urinary tract infection Current Visit: Yes Status: Acute Assessment and plan: Recurrent, from urine culture 10/29 Patient has his catheter changed today Continue cefepime Follow repeat urine culture (2) Left hip pain Current Visit: Yes Status: Chronic Assessment and plan: Resume home meds (3) Seizure disorder Current Visit: Yes Status: Chronic Assessment and plan: Continue home meds (4) Systemic lupus erythematosus Current Visit: Yes Status: Chronic Assessment and plan: Continue Warfarin, monitor INR Give Lovenox as DVT prophylaxis Qualifiers: Systemic lupus erythematosus type: unspecified Systemic lupus erythematosus organ involvement: unspecified Qualified Code(s): M32.9 - Systemic lupus erythematosus, unspecified - Subjective Interval history: Initial encounter Seen at bedside 31 Y/O M with SLE with multiple DVTs in the past, Seizure disorder (Organic brain lesion), neurogenic bladder with indwelling suprapubic catheter, distal femoral fracture with 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 He presented with Urinary symptoms and is being managed for pseudmonas UTI from Urine culture done on 11/03/16 He had been discharged on po meds during admission on 09/2016 during that time urine culture had no growth He has no new complains Repeat Urine culture "grossly mixed" INR is subtherapeutic Suprapubic cathter changed this morning by KAREN Will send repeat urine culture - Constitutional Vitals: Temp Pulse Resp BP Pulse Ox 97.5 F L 54 14 99/65 98 11/08/16 06:52 11/08/16 06:52 11/08/16 06:52 11/08/16 06:52 11/08/16 07:57 General appearance: Present: A&O X 3, pleasant, no acute distress - Head Head exam: Present: atraumatic - Eye Eye exam: Present: PERRL, conjuntiva pink, sclera anicteric - ENT ENT exam: Present: mucous membranes moist Additional comments: Poor dental hygeine - Neck Neck exam general surgery: Present: normal inspection - Respiratory Respiratory exam: Present: CTAB. Absent: rales, rhonchi, stridor, wheezes - Cardiovascular Cardiovascular exam: Present: RRR, +S1, +S2. Absent: systolic murmur, tachycardia - GI/Abdominal GI/Abdominal exam: Present: normal bowel sounds, soft, no peritoneal signs. Absent: mass, tenderness - Additional comments: Suprapubic Vences, clean and dry periostium, draining clear urine - Extremities Exam Extremities exam: Present: warm, radial pulses palpable and symetrical. Absent : calf tenderness, cyanotic, pedal edema Additional comments: Contracted lower extremities - Neurological Exam Neurological exam: Present: CN II-XII intact, oriented X3, no focal deficits. Absent: pronater drift, facial droop, speech deficit - Skin Skin exam: Present: dry Internal Medicine: Result - Labs CBC & Chem 7: 11/07/16 06:44 11/08/16 04:03 Labs: BMP 11/08/16 04:03 Sodium 138 Potassium 4.3 D Chloride 108 Carbon Dioxide 23 BUN 7 L Creatinine 0.56 L Glucose 102 H Calcium 8.4 L - ABG Interpretation ABG results: PT/INR, D-dimer PT 13.3 Seconds (9.4-12.1) H 11/08/16 04:03 - VTE Reasons for not Prescribing Prophylaxis: Not indicated-Anticoagulated or INR therapeutic Consult Discharge Plan - Plan Referrals: John Caceres MD [Non-Partnered Physician] - 11/12/16 10:00 am
[2016-11-08] MEDS ORDERED: *HR* Warfarin 4 MG TABLET PO SCH (11:30)
[2016-11-08] MEDS: *HR* Enoxaparin 40 MG/0.4 ML SYRINGE SQ SCH (16:27)
[2016-11-08] MEDS: *HR* Warfarin 5 MG TABLET PO SCH (17:42)
[2016-11-08] MEDS: Nicotine 21 MG PATCH.TD24 TD SCH (20:12)
[2016-11-09] MEDS: *HR* Morphine 2 MG/ML SYRINGE IVP PRN ×6 (01:00→21:09)
[2016-11-09 04:29] LABS: Basophils # 0.1 K/mcL (0.0-0.2); Basophils % 0.8 %; Eosinophils # 0.2 K/mcL (0.0-0.6); Eosinophils % 2.6 %; Hematocrit 41.8 % (37.5-50.1); Immature Granulocytes % 0.6 % (0-4); Lymphocytes # 1.3 K/mcL (0.6-4.6); Lymphocytes % 19.8 %; Mean Corpuscular HGB Conc 35.2 g/dL (31.6-35.5); Mean Corpuscular Hemoglobin 30.4 pg (28.0-33.3); Mean Corpuscular Volume 86.4 fL (83.0-100.0); Mean Platelet Volume 10.5 fL (9.4-12.4); Monocytes # 0.6 K/mcL (0.0-1.3); Monocytes % 8.7 %; Neutrophils # 4.4 K/mcL (1.6-8.9); Platelet Count 133 K/mcL (140-400); Red Blood Count 4.84 M/mcL (4.19-5.50); Segmented Neutrophils % 67.5 %
[2016-11-09 04:32] LABS: Hemoglobin 14.7 g/dL (12.9-16.9)
[2016-11-09 04:46] LABS: INR 1.3; Prothrombin Time 13.8 Seconds (9.4-12.1)
[2016-11-09 04:48] LABS: Activated Partial Thrombo Time 33.3 Seconds (26.0-36.0)
[2016-11-09] MEDS: Cefepime HCl 2,000 MG in D5% in Water (Mini-Bag+) 100 ML IVPB SCH ×2 (05:09→17:12)
[2016-11-09] MEDS: 0.9 % Sodium Chloride w KCl 20 MEQ/1,000 ML MLS IVC SCH (08:59)
[2016-11-09] MEDS: *HR* Enoxaparin 40 MG/0.4 ML SYRINGE SQ SCH ×2 (09:06→10:30)
[2016-11-09] MEDS: Nicotine 21 MG PATCH.TD24 TD SCH (09:07)
[2016-11-09] MEDS: *HR* Warfarin 5 MG TABLET PO SCH (17:11)
--- NOTE | 2016-11-09 17:21 | Internal Med Progress Note ---
Date of Encounter: 11/09/16 Time of Encounter: 16:59 - Assessment and plan (1) UTI (urinary tract infection) Current Visit: Yes Status: Acute Assessment and plan: Recurrent, from urine culture 10/29 smith says he does not have his cathetr changed and is due. urology has been consulted. Continue cefepime, will need total of 14 days of IV ab, urine cx positive for pseudomonas. will need power glide for IV ab. Qualifiers: Urinary tract infection type: catheter-associated UTI Indwelling urinary catheter type: cystostomy catheter Encounter type: subsequent encounter Qualified Code(s): T83.510D - Infection and inflammatory reaction due to cystostomy catheter, subsequent encounter; N39.0 - Urinary tract infection, site not specified (2) Left hip pain Current Visit: Yes Status: Chronic Assessment and plan: Resume home meds (3) Seizure disorder Current Visit: Yes Status: Chronic Assessment and plan: Continue home meds (4) Systemic lupus erythematosus Current Visit: Yes Status: Chronic Assessment and plan: Continue Warfarin, monitor INR Give Lovenox as DVT prophylaxis Qualifiers: Systemic lupus erythematosus type: unspecified Systemic lupus erythematosus organ involvement: unspecified Qualified Code(s): M32.9 - Systemic lupus erythematosus, unspecified - Time Spent With Patient 25 - 35 minutes - Subjective Interval history: seen at the bedside, denies any complains. has been started on cefipime for pseudomonas UTI, has recurrent uTI from the indwelling suprapubic catheter for neurogenic bladder. urology has been consulted for changing the suprapubic catheter as he syas its been a mth last time it was changed. - Constitutional Vitals: Temp Pulse Resp BP Pulse Ox 97.5 F L 99 16 102/50 96 11/09/16 15:11 11/09/16 15:11 11/09/16 15:11 11/09/16 15:11 11/09/16 15:11 General appearance: Present: A&O X 3, pleasant, no acute distress Exam: HEENT: Not pale, anicteric, afebrile, acyanotic. Trachea is central. Chest: Clinically clear Heart: RRR, HS1.2 no murmur Abdomen: suprapubic catheter (with minimal peristomal drainage, not unusual), soft, no tenderness. BS+ : no flank tenderness, no CVA tenderness, no suprapubic tenderness. 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 Internal Medicine: Result - Labs CBC & Chem 7: 11/09/16 04:05 11/08/16 04:03 Labs: Short CBC 11/09/16 Range/Units 04:05 WBC 6.5 (4.3-11.1) K/mcL Hgb 14.7 D (12.9-16.9) g/dL Hct 41.8 (37.5-50.1) % Plt Count 133 L (140-400) K/mcL Neutrophils # 4.4 (1.6-8.9) K/mcL - ABG Interpretation ABG results: PT/INR, D-dimer PT 13.8 Seconds (9.4-12.1) H 11/09/16 04:05 - VTE Reasons for not Prescribing Prophylaxis: Not indicated-Anticoagulated or INR therapeutic Consult Discharge Plan - Plan Referrals: John Caceres MD [Non-Partnered Physician] - 11/12/16 10:00 am
[2016-11-09] MEDS ORDERED: Nicotine 2 MG GUM BC PRN (20:09)
[2016-11-09] MEDS: Nicotine 2 MG GUM BC PRN ×2 (20:29→22:29)
[2016-11-10] MEDS: *HR* Morphine 2 MG/ML SYRINGE IVP PRN ×4 (01:18→13:35)
[2016-11-10] MEDS: Nicotine 2 MG GUM BC PRN ×4 (03:23→13:11)
[2016-11-10 04:33] LABS: INR 1.4; Prothrombin Time 14.9 Seconds (9.4-12.1)
[2016-11-10 04:36] LABS: Activated Partial Thrombo Time 34.2 Seconds (26.0-36.0)
[2016-11-10] MEDS: Cefepime HCl 2,000 MG in D5% in Water (Mini-Bag+) 100 ML IVPB SCH ×2 (05:26→17:12)
--- NOTE | 2016-11-10 08:17 | Event Note ---
Date of Encounter: 11/10/16 Time of Encounter: 08:14 evaluated patient this AM for suprapubic catheter change. patient wanted IV pain medication prior to SPT cath change but based on schedule for meds he was not due. I discussed that it is not necessary to dose with IV pain medication prior to changing an existing SPT. he stated he did "not like by bedside manner " and refused the cath change. If discharge planned soon, he can have cath changed by home health/PA or one of the other urologist will need to change next week.
[2016-11-10] MEDS: *HR* Enoxaparin 40 MG/0.4 ML SYRINGE SQ SCH (08:51)
[2016-11-10 15:03] VITALS: BP 134/94
--- NOTE | 2016-11-10 15:53 | Discharge Summary ---
Date of Encounter: 11/10/16 Time of Encounter: 15:51 - Discharge Diagnosis (1) UTI (urinary tract infection) Priority: Primary Status: Acute Qualifiers: Urinary tract infection type: catheter-associated UTI Indwelling urinary catheter type: cystostomy catheter Encounter type: subsequent encounter Qualified Code(s): T83.510D - Infection and inflammatory reaction due to cystostomy catheter, subsequent encounter; N39.0 - Urinary tract infection, site not specified (2) Left hip pain Priority: Secondary Status: Chronic (3) Seizure disorder Priority: Secondary Status: Chronic (4) Systemic lupus erythematosus Priority: Secondary Status: Chronic Qualifiers: Systemic lupus erythematosus type: unspecified Systemic lupus erythematosus organ involvement: unspecified Qualified Code(s): M32.9 - Systemic lupus erythematosus, unspecified - Discharge Medications Prescriptions: Cefepime HCl [Maxipime] 1,000 mg IVPB Q12HR #20 vial Home Medications: Sertraline [Zoloft] 100 mg PO DAILY 05/18/15 [History] Warfarin [Coumadin] 5 mg PO Q48H 05/18/15 [History] Oxybutynin Chloride [Ditropan Xl] 15 mg PO DAILY 10/08/16 [History] Warfarin [Coumadin] 4 mg PO Q48H 10/08/16 [History] Cefepime HCl [Maxipime] 1,000 mg IVPB Q12HR #20 vial 11/10/16 [Rx] Allergies/Adverse Reactions: Allergies tramadol Allergy (Verified 11/07/16 09:22) See Comments seizures acetaminophen [From Vicodin] Adverse Reaction (Verified 11/07/16 09:22) Nausea ceftriaxone [From Rocephin] Adverse Reaction (Verified 11/07/16 09:22) See Comments "feels like battery acid all over my skin" hydrocodone [From Vicodin] Adverse Reaction (Verified 11/07/16 09:22) Nausea Date of admission: 11/07/16 09:45 Primary care physician: PCP NO Consults: 11/07/16 11:43 Consult to Urology [CONS] Routine Consulting Provider: Urology Sherrie Reason for Consult: change suprapubic catheter. Complicated UTI. Call Completed: No 11/10/16 11:17 Consult to Invasive Line Access Team [CONS] Routine Reason for Consult: home IV antibiotic therapy Line Type: EPIV Time Notified: 11:18 Call Completed: Yes 11/10/16 11:21 Consult to Registered Nurse Maternity [CONS] Routine Reason for SW Consult: home IV atb therapy Discharging clinician: Murtaza Mittal Anticipated date of discharge: 11/10/16 - Patient Status Disposition: Home Health Service Condition: Fair Functional capacity at discharge: uses cane/walker Overall status at discharge: patient is progressing back to baseline - Discharge Instructions Instructions: Urinary Tract Infection in Men (DC) Follow Up With: John Caceres MD [Non-Partnered Physician] - 11/12/16 10:00 am Additional Instructions: needs SPC changed by , if not done by , needs urology f/u this week. - Diet and Activity Activity: resume usual activities as tolerated Diet: advance to your usual diet Interval History: Mr. Urbano is a 31 year old male with neurogenic bladder s/p suprapubic catheter , recurrent UTI, presents with 2-3 weeks of suprapubic pain. He reports progressive pain in the suprapubis and dysuria. No fever, chills or rigors, nausea or vomiting. He reports weakness. He reports urethral discharge. His Vences catheter was last changed 1 month ago. He was recently admitted in September , he was treated with Zosyn while hospitalized and discharged home to complete a course of Augmentin. Urine culture at that time was " no bacterial growth". EMR reports recent urine culture of Pseudomonas, sensitive to Cefepime and Zosyn. He appears to have allergies to Cefriaxone. He was admitted for IV antibiotics and was started on cefepime. Urology was consulted for change of suprapubic catheter. He improved clinically and his symptoms UTI improved on IV cefepime. Repeat urine cultures have shown no growth. He was seen by urology at the bedside however he refused the catheter change at that time. Patient is being discharged today on IV antibiotics to complete 14 days of treatment given complicated UTI due to presence of indwelling catheter. He has home health which will be arranged to give the home infusion of antibiotics starting tomorrow. He reports that he will have his catheter changed by the home health, if not he will need outpatient appointment to see urology for catheter change. He is being discharged today in stable condition. Hospital course: Mr. Urbano is a 31 year old male Time spent discussing smoking cessation with patient: more than 10 minutes - Time Spent with Patient Total time spent providing and/or coordinating discharge services: Greater than 30 minutes - Constitutional Vitals: Temp Pulse Resp BP Pulse Ox 97.7 F 99 18 134/94 95 11/10/16 15:01 11/10/16 15:01 11/10/16 15:01 11/10/16 15:01 11/10/16 15:01 General appearance: Present: A&O X 3, pleasant, no acute distress Exam: O/E: Not in distress, not ill or toxic looking. HEENT: Not pale, anicteric, afebrile, acyanotic. Trachea is central. Chest: Clinically clear Heart: RRR, HS1.2 no murmur Abdomen: suprapubic catheter (with minimal peristomal drainage, not unusual), soft, suprapubic tenderness erich masses. BS+ : no flank tenderness, no CVA tenderness, no suprapubic tenderness. 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 Extremities: Maintains left knee flexed, weakness in left lower extremity ( chronic, related to sciatica), bilateral pedal edema, scaly stasis dermatitis bilaterally, onychogryphosis/onychomycosis, normal pedal pulse, no calf tenderness. - VTE Reasons for not Prescribing Prophylaxis: Not indicated-Anticoagulated or INR therapeutic
[2016-11-10] MEDS: *HR* Warfarin 5 MG TABLET PO SCH (17:12)
[2016-11-10] MEDS: Ibuprofen 600 MG TABLET PO PRN (17:12)
--- NOTE | 2016-11-10 17:16 | Physician Discharge Referral ---
Home Health/Hosp Referral Info Transfer to: Home Health Attending Provider: radha obregon - Diagnosis (1) UTI (urinary tract infection) Status: Acute (2) Left hip pain Status: Chronic (3) Seizure disorder Status: Chronic (4) Systemic lupus erythematosus Status: Chronic - Respiratory Orders Smoking Cessation: Smoking cessation has been advised. For more information, call the [facility] [employer] Quit Line at 4-171-ZYBZ-NOW. - Diet/Nutrition Diet/Nutrition Orders: Regular - Activity Activity Orders: Chair, Walker - Services Needed Following services are medically necessary services: Nursing, Home Health Aide, Physical Therapy, Occupational Therapy, Home Infusion Home Care Orders: he should get IV cefepime 1 gram IV q12hx 10 days, to be infused by . - Transfer Medications Prescriptions: Cefepime HCl [Maxipime] 1,000 mg IVPB Q12HR #20 vial Home Medications: Sertraline [Zoloft] 100 mg PO DAILY 05/18/15 [History] Warfarin [Coumadin] 5 mg PO Q48H 05/18/15 [History] Oxybutynin Chloride [Ditropan Xl] 15 mg PO DAILY 10/08/16 [History] Warfarin [Coumadin] 4 mg PO Q48H 10/08/16 [History] Cefepime HCl [Maxipime] 1,000 mg IVPB Q12HR #20 vial 11/10/16 [Rx] Allergies/Adverse Reactions: Allergies tramadol Allergy (Verified 11/07/16 09:22) See Comments seizures acetaminophen [From Vicodin] Adverse Reaction (Verified 11/07/16 09:22) Nausea ceftriaxone [From Rocephin] Adverse Reaction (Verified 11/07/16 09:22) See Comments "feels like battery acid all over my skin" hydrocodone [From Vicodin] Adverse Reaction (Verified 11/07/16 09:22) Nausea Certification: Further, I certify that my clinical findings support that this patient is homebound (i.e. absences from home require considerable and taxing effort and are for medical reasons or buddhism services or infrequently or short duration when for other reasons) because: Homebound Reason: Patient requires assistance of a person or device to safely leave home Attestation: My signature below is to certify that this patient is under my care and that I, or nurse practitioner, or a physician's assistant chief nursing officer working with me, has a face-to -face encounter with this patient.
== END 2016-11-10 18:12 | disposition home health service (06) ==
LOC: EMEROO 06:30 → 3BNU 06:30 → SUATTDRO 09:45 → 3BNU 10:18 → SUATTDRO 11:23
PROVIDERS: ADMIT Internal Medicine; ATTEND Internal Medicine Endocrinology, Diabetes & Metabolism